=== PATIENT | female | born 1965 | race Caucasian/White ===

== ENCOUNTER 2023-09-22 06:16 | Day surgery (SDC) | payer OTHER ==
[2023-09-19 16:54] VITALS: BMI 43.9
[2023-09-22] MEDS ORDERED: EPINEPHrine 1:1,000 1,000 MCG/ML ML ONE (07:10)
[2023-09-22] MEDS ORDERED: BUPIVACAINE HCL/PF 2.5 MG/ML - 30 ML VIAL IJ ONE (07:11)
[2023-09-22] MEDS ORDERED: LIDOCAINE HCL/PF 2% SDV 5ML VIAL ONE (07:17)
[2023-09-22] MEDS ORDERED: MIDAZOLAM HCL 2 MG/2 ML SINGLE DOSE VIAL ONE (07:18)
[2023-09-22] MEDS ORDERED: PROPOFOL 20 ML ONE (07:18)
[2023-09-22] MEDS ORDERED: ceFAZolin SODIUM 1 GM VIAL ONE (07:57)
[2023-09-22] MEDS ORDERED: DEXAMETHASONE SOD PHOSPHATE 4 MG/1 ML VIAL ONE (07:57)
[2023-09-22] MEDS ORDERED: BUPIVACAINE HCL/PF 0.25% (2.5MG/ML) 10 ML VIAL IJ ONE (08:20)
[2023-09-22] MEDS ORDERED: KETOROLAC TROMETHAMINE 30 MG/1 ML VIAL ONE (08:21)
[2023-09-22] MEDS ORDERED: ONDANSETRON 4 MG/2 ML VIAL ONE (08:21)
[2023-09-22] MEDS ORDERED: oxyCODONE HCL 5 MG TABLET PO PRN ×2 (08:40)
[2023-09-22] MEDS ORDERED: PROMETHAZINE HCL 25 MG/1 ML VIAL IVPB PRN (08:40)
[2023-09-22] MEDS ORDERED: ACETAMINOPHEN 1000 MG/100 ML BAG IVPB ONE (08:41)
[2023-09-22] MEDS ORDERED: LACTATED RINGERS SOLUTION 1,000 ML IV SCH (08:45)
[2023-09-22] MEDS ORDERED: FENTANYL CITRATE/PF 50 MCG/ML VIAL ONE (09:17)
[2023-09-22 10:07] VITALS: PULSE 70; RESP 16; TEMP 97.8
[2023-09-22 10:43] VITALS: BP 128/70
== END 2023-09-22 10:55 | disposition home or self-care (01) ==
LOC: FASU 06:16
PROVIDERS: ATTEND Orthopaedic Surgery
PROC: 0SBD4ZZ Excision of Left Knee Joint, Percutaneous Endoscopic Approach (ICD-10-PCS; 2023-09-22)
PROC: 0SBD4ZZ Excision of Left Knee Joint, Percutaneous Endoscopic Approach (ICD-10-PCS; principal; 2023-09-22 08:07)
DX: S83.242A Other tear of medial meniscus, current injury, left knee, initial encounter (principal); S83.282A Other tear of lateral meniscus, current injury, left knee, initial encounter; S83.8X2A Sprain of other specified parts of left knee, initial encounter; M65.861 Other synovitis and tenosynovitis, right lower leg; X58.XXXA Exposure to other specified factors, initial encounter; Y92.9 Unspecified place or not applicable; Y93.9 Activity, unspecified
CPT/HCPCS: 82962; 94760